=== PATIENT | male | born 2000 | race Caucasian/White ===

== ENCOUNTER 2021-06-30 12:54 | Emergency (ER) | payer BC ==
[~2021-06-30] VITALS: Ht 182.9 cm; Wt 72.6 kg
[2021-06-30] MEDS ORDERED: MULTI VITAMIN1 EACH PO (13:18)
[2021-06-30] MEDS ORDERED: KETO10TA2 PO (16:10)
[2021-06-30] MEDS ORDERED: AMOX-CLAV 875-1 EACH PO (16:10)
== END 2021-06-30 16:14 | disposition home or self-care (01) ==
LOC: ER 12:54
DX: J03.90 Acute tonsillitis, unspecified (principal); Z03.818 Encounter for observation for suspected exposure to other biological agents ruled out

== ENCOUNTER 2022-02-10 09:47 | Emergency (ER) | payer BC ==
[~2022-02-10] VITALS: Ht 182.9 cm; Wt 78.9 kg
[~2022-02-10 09:47] MED LIST: AMOX-CLAV 875-1 EACH PO; KETO10TA2 PO; MULTI VITAMIN1 EACH PO
[2022-02-10] MEDS ORDERED: NYSTATIN/TRIAMC15 GM TOP (11:00)
== END 2022-02-10 13:02 | disposition home or self-care (01) ==
LOC: ER 09:47
DX: B36.8 Other specified superficial mycoses (principal); B00.9 Herpesviral infection, unspecified